=== PATIENT | female | born 1980 ===

== ENCOUNTER 2016-04-26 22:39 | Emergency (ER) | payer OTHER ==
[~2016-04-26] VITALS: Ht 170.2 cm; Wt 114.8 kg
--- NOTE | 2016-04-26 23:06 | ED GI/GU/ABDOMINAL COMPLAINT ---
History of Present Illness General Chief Complaint: General Adult Stated Complaint: PT BEEN VOMITING ALL DAY AND IS 7WKS Source: patient Exam Limitations: no limitations Vital Signs & Intake/Output Vital Signs & Intake/Output Vital Signs Date Time Temp Pulse Resp B/P Pulse O2 O2 Flow FiO2 Ox Delivery Rate 04/27 0027 Room Air 04/26 2245 97.8 110 18 125/84 97 Room Air ED Intake and Output 04/27 0000 04/26 1200 Intake Total Output Total Balance Patient 253 lb Weight Allergies Coded Allergies: No Known Allergies (04/26/16) Reconcile Medications Levothyroxine Sodium 75 MCG TABLET 1 TAB PO DAILY HYPOTHYROIDISM (Reported) Ondansetron (Zofran Odt) 4 MG TAB.RAPDIS 1 TAB SL TID PRN NAUSEA/VOMITING Triage Note: RECEIVED 35 YO FEMALE , 7 WEEKS , C/O NAUSEA AND VOMITING MULTIPLE TIMES WITH LOWER ABDOMINAL CRAMPING. NO SPOTTING OR VAGINAL BLEEDING NOTED. Triage Nurses Notes Reviewed? yes ? y Is pt currently ? No Onset: Gradual Duration: hour(s): Timing: recent history Location: epigastric Radiation: no radiation Activities at Onset: none Prior Abdominal Problems: none Modifying Factors: Worsens With: defecating, vomiting. Associated Symptoms: diarrhea, nausea/vomiting HPI: 35 yo woman g1po, 7 weeks gestation, presents with 15 hours of nausea, vomiting, diarrhea. 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 She shares that she has been vomiting, "all day," with several bouts of diarrhea. She notes no vaginal bleeding, vaginal discharge, dysuria, menstrual type cramps. 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 She is otherwise well. Past History Travel History Traveled to [place] past 21 day No Medical History Any Pertinent Medical History? see below for history Neurological: NONE EENT: NONE Cardiovascular: NONE Respiratory: NONE Gastrointestinal: NONE Hepatic: NONE Renal: NONE Musculoskeletal: NONE Psychiatric: NONE Endocrine: hypothyroidism Blood Disorders: NONE Cancer(s): NONE Surgical History Surgical History: none Psychosocial History What is your primary language [place] Tobacco Use: Never used Family History Hx Contributory? No Review of Systems Review of Systems Constitutional: Reports: no symptoms. EENTM: Reports: no symptoms. Respiratory: Reports: no symptoms. Cardiovascular: Reports: no symptoms. GI: Reports: no symptoms. Genitourinary: Reports: no symptoms. Musculoskeletal: Reports: no symptoms. Skin: Reports: no symptoms. Neurological/Psychological: Reports: no symptoms. Hematologic/Endocrine: Reports: no symptoms. Immunologic/Allergic: Reports: no symptoms. All Other Systems: Reviewed and Negative Physical Exam Physical Exam General Appearance: well developed/nourished, alert, awake, comfortable Head: atraumatic, normal appearance Eyes: Bilateral: normal appearance. Ears, Nose, Throat, Mouth: hearing grossly normal, moist mucous membrane Neck: normal inspection, supple, full range of motion Respiratory: normal breath sounds, chest non-tender, no respiratory distress, quiet respiration, lungs clear Cardiovascular: regular rate/rhythm Gastrointestinal: normal bowel sounds, soft, mild mid epigastric tenderness to palpation. no rebound. no guarding. no lower abdominal tenderness. Back: normal inspection, normal range of motion Extremities: normal range of motion Neurologic/Psych: no motor/sensory deficits, awake, alert, oriented x 3 Skin: intact, normal color, warm/dry Comments: bedside u/s by ED MD... intrauterine yolk sac identified. Core Measures ACS in differential dx? No Severe Sepsis Present: No Septic Shock Present: No Progress Differential Diagnosis: UTI/pyelo, viral gastro vs hyperemesis vs uti vs other. Plan of Care: Orders Procedure Date/time Status HUMAN BETA HCG TITRE 04/27 0300 Active URINALYSIS 04/26 2255 Complete COMPREHENSIVE METABOLIC PANEL 04/26 2255 Active CBC WITHOUT DIFFERENTIAL 04/26 2255 Complete ACETONE 04/26 2255 Active Current Medications Sig/Gamaliel Start time Last Medication Dose Stop Time Status Admin Ondansetron HCl 4 MG ONCE ONE 04/26 2300 CAN (Zofran) 04/26 2301 Sodium Chloride 1,000 ML BOLUS ONE 04/26 2300 CAN (Normal Saline 0.9%) 04/26 2359 Laboratory Tests 04/27/16 0300: Beta HCG, Quant Cancelled 04/27/16 0300: Anion Gap 14, Estimated GFR > 60, BUN/Creatinine Ratio 15.0, Glucose 88, Calcium 9.2, Total Bilirubin 0.6, AST 19, ALT 21, Alkaline Phosphatase 57, Total Protein 7.0, Albumin 4.0, Globulin 3.0, Albumin/Globulin Ratio 1.3, Beta HCG, Quant Pending, Acetone Level NEGATIVE 04/27/16 0141: Urine Color YEL, Urine Clarity HAZY H, Urine pH 6.0, Ur Specific [place] >= 1.030, Urine Protein TRACE H, Urine Ketones 40 H, Urine Nitrite NEG, Urine Bilirubin NEG@ICTO, Urine Urobilinogen 1.0, Ur Leukocyte Esterase NEG, Ur Microscopic SEDIMENT EXAMINED, Urine RBC RARE, Ur Epithelial Cells PACKD H, Urine Mucus MOD H, Urine Hemoglobin TRACE-LYSED, Urine Glucose NEG 04/26/16 2355: CBC w Diff NO MAN DIFF REQ, RBC 5.03, MCV 88.6, MCH 29.9, RDW 13.1, MPV 8.4, Gran % 87.6 H, Lymphocytes % 6.1 L, Monocytes % 6.0, Eosinophils % 0.1, Basophils % 0.2, Absolute Granulocytes 6.3, Absolute Lymphocytes 0.4 L, Absolute Monocytes 0.4, Absolute Eosinophils 0, Absolute Basophils 0, PUBS MCHC 33.8 Initial ED EKG: none Departure Departure Disposition: HOME OR SELF CARE Condition: Stable Clinical Impression Primary Impression: Secondary Impressions: Diarrhea, Nausea and vomiting Referrals: PRESTON BAE MD (PCP/Family) Departure Forms: Customer Survey General Discharge Information Prescriptions: Current Visit Scripts Ondansetron (Zofran Odt) 1 TAB SL TID PRN NAUSEA/VOMITING #10 TAB Comments 04/27/16, 3:48... pt doing well in ED after zofran and iv fluids.... pt with benign labs, no uti... 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
[2016-04-27 00:23] LABS: ABSOLUTE BASOPHIL COUNT 0 /CUMM (0.0-0.2); ABSOLUTE EOSINOPHIL COUNT 0 /CUMM (0.0-0.7); ABSOLUTE GRANULOCYTE CT 6.3 /CUMM (1.4-6.5); ABSOLUTE LYMPH COUNT 0.4 /CUMM (1.2-3.4); ABSOLUTE MONOCYTE COUNT 0.4 /CUMM (0.10-0.60); BASOPHIL % 0.2 % (0.0-2.0); EOSINOPHIL % 0.1 % (0-5); HEMATOCRIT 44.5 % (37-47); MEAN CORPUSCULAR HGB 29.9 PG (27.0-31.0); MEAN CORPUSCULAR HGB CONC 33.8 G/DL (33.0-37.0); MEAN CORPUSCULAR VOLUME 88.6 FL (81.0-99.0); MEAN PLATELET VOLUME 8.4 FL (7.4-10.4); PLATELET COUNT 232 /CUMM (130-400); RBC DISTRIBUTION WIDTH 13.1 % (11.5-14.5); RED BLOOD CELL CT 5.03 /CUMM (4.20-5.40)
[2016-04-27 00:38] LABS: GRANULOCYTE % 87.6 % (42.2-75.2); WHITE BLOOD CELL COUNT 7.8 /CUMM (4.8-10.8)
[2016-04-27] MEDS ORDERED: LEVOTHYROXINE75 MCG PO (02:49)
[2016-04-27] MEDS ORDERED: ZOFRAN ODT4 M1 SL (03:46)
[2016-04-27 04:14] VITALS: BP 118/74
== END 2016-04-27 04:15 ==
LOC: ERH 22:39
PROVIDERS: Emergency Medicine
DX: O21.9 Vomiting of pregnancy, unspecified (principal); R19.7 Diarrhea, unspecified; Z3A.01 Less than 8 weeks gestation of pregnancy
CPT/HCPCS: 81001; J3101